=== PATIENT | male | born 1935 | race Caucasian/White ===

== ENCOUNTER → 2021-03-16 | Outpatient (CLI) | payer OTHER | LOC: CT 14:11 | DX: I73.9 Peripheral vascular disease, unspecified (principal); M79.606 Pain in leg, unspecified; I70.203 Unspecified atherosclerosis of native arteries of extremities, bilateral legs; Z95.828 Presence of other vascular implants and grafts | CPT/HCPCS: 36415; 75635; 82565; 84520; Q9967 ==

== ENCOUNTER → 2021-04-20 | Outpatient (CLI) | payer OTHER | LOC: HEART 5 15:02 | DX: R00.0 Tachycardia, unspecified (principal) ==